=== PATIENT | female | born 1980 | race Caucasian/White ===

== ENCOUNTER 2017-07-28 13:03 | Emergency (ER) | payer OTHER ==
--- NOTE | 2017-07-28 13:04 | ED Physician Documentation ---
Asthma - HISTORIAN Historian: patient - HPI Stated Complaint: asthma attack Chief Complaint: Asthma Onset: hours (1), other Duration: continues in ED Initiating Event: environmental allergy. denies: upper respiratory illness Associated Symptoms:: trouble breathing, shortness of breath, productive cough, chest tightness. denies: fever, bloody sputum, chest discomfort, chills Current Asthma Therapy: albuterol inhaler Further Comments: yes (She states she has been out of her inhaler and she was working in attack with dust and no inhaler. She has not been sick. She states she did just go get her inhaler just before coming and she has increased shortness of breath and felt her hands were seizing up .) - ROS CONST: no problems MS/SKIN/LYMPH: denies: rash, swollen glands NEURO/PSYCH: denies: headache, dizziness, light-headedness - PAST HX Asthma: occasional attacks Lung Disease: asthma, other (GERD ) DVT/PE Risk Factors: none Surgeries/Procedures: cholecystectomy Immunizations: UTD Allergies/Adverse Reactions: Allergies Allergy/AdvReac Type Severity Reaction Status Date / Time No Known Allergies Allergy Unverified 07/28/17 13:15 Home Medications: Ambulatory Orders Medication Instructions Recorded Epinephrine [Epipen Jr] 0.15 mg IM PRN PRN 07/28/17 Escitalopram Oxalate [Lexapro] 10 mg PO QD 07/28/17 Meloxicam [Meloxicam] 7.5 mg PO BID 07/28/17 Montelukast Sodium [Singulair] 10 mg PO HS 07/28/17 Norgestrel-Ethinyl Estradiol 1 tab PO DAILY 07/28/17 [Cryselle-28 Tablet] - SOCIAL HX Smoking History: non-smoker Alcohol Use: none Drug Use: none - FAMILY HX Family History: asthma - REVIEWED ASSESSMENTS Nursing Assessment Reviewed: Yes Vitals Reviewed: Yes Progress - Progress Progress: 1330: improved feeling of inspiration and less shortness of air. She does not feel that she has cramped up hands. she is less anxious. She is ready to go home she has a fish juarez to prepare for. DG ED Results Lab/Radiology - Orders Orders: ED Orders Category Date Time Status Ipratropium/Albuterol Sulfate [Duoneb] Med 07/28/17 13:04 Once 3 ml NEB NOW ONE Asthma Physical Exam - EXAM General Appearance: alert, mild distress EENT: eye inspection normal, NORBERTO Respiratory: no resp. distress, breath sounds nml, no pain on inspiration CVS: reg rate & rhythm, heart sounds normal, equal pulses, no murmur Abdomen: non-tender, no organomegaly, nml bowel sounds Skin: color nml, no rash Extremities: non-tender, normal range of motion, no evidence of injury, no edema Neuro/Psych: oriented x3, neuro intact, mood/affect nml, disoriented Discharge Clincal Impression: Asthma attack Qualifiers: Asthma severity: mild Asthma persistence: intermittent Qualified Code(s): J45.21 - Mild intermittent asthma with (acute) exacerbation Referrals: Primary Doctor,No [REFERRING] - 2 Days Comments: 1. Continue inhalers - she has not been using her maintenance med - she will re start 2. Use albuterol as needed - per prescription 3. Increase fluids 4. Encouraged her to stay inside but she states she cannot today due to commitments 5. Return to ER for increased shortness of air, fever, cough or other concerns Condition: Stable Disposition: 01 HOME, SELF-CARE Decision to Admit: NO Date of Decison to Admit: 07/28/17 Decision Time: 13:31
[2017-07-28] MEDS: IPRATROPIUM/ALBUTEROL SULFATE 3 ML AMPUL.NEB NEB ONE ×2 (13:05→13:19)
[2017-07-28] MEDS: methylPREDNISolone ACETATE 80 MG/ML VIAL IM ONE (13:30)
[2017-07-28 13:39] VITALS: BP 133/63
== END 2017-07-28 13:38 | disposition home or self-care (01) ==
LOC: ED 13:03
DX: J45.21 Mild intermittent asthma with (acute) exacerbation (principal)
CPT/HCPCS: 94640; 96372; 99284; J1040